=== PATIENT | male | born 1985 | race Caucasian/White ===

== ENCOUNTER 2016-04-19 12:08 | Emergency (ER) | payer MEDICARE ==
[2016-04-19 13:13] LABS: BASOPHILS 0.1 % (0.0-2.0); EOSINOPHILS 0 % (0-7); HEMATOCRIT 43.7 % (42.0-54.0); HEMOGLOBIN 15.6 g/dL (13.5-17.5); IMMATURE GRANULOCYTES 0.2 % (0-5); LYMPHOCYTES 11.3 % (15-50); MCH 30.5 pg (26.0-34.0); MCHC 35.7 g/dL (31.0-37.0); MCV 85.5 fL (80.0-100.0); MEAN PLATELET VOLUME 9.1 fL (7.4-10.4); MONOCYTES 10.3 % (2-11); NEUTROPHILS 78.1 % (40-80); RBC 5.11 10x6/uL (4.20-6.10); RDW 13.6 % (11.5-14.5); WBC 18.4 10x3/uL (4.8-10.8)
[2016-04-19 13:18] LABS: PLATELET COUNT 311 10x3/uL (130-400)
[2016-04-19 13:28] LABS: ALBUMIN 4.6 g/dL (3.4-5.0); ALKALINE PHOSPHATASE 71 U/L (46-116); ALT (SGPT) 69 U/L (10-68); CALC OSMOLALITY 267 mosm/kg (275-300); CALCIUM 9.4 mg/dL (8.5-10.1); CARBON DIOXIDE 26.5 mmol/L (21.0-32.0); CHLORIDE - SERUM 90 mmol/L (98-107); CREATININE - SERUM 1.2 mg/dL (0.6-1.3); GLUCOSE 123 mg/dL (74-106); POTASSIUM - SERUM 4.5 mmol/L (3.5-5.1); PROTEIN - SERUM 9.6 g/dL (6.4-8.2); SODIUM 127 mmol/L (136-145); UREA NITROGEN 45 mg/dL (7-18); eGFR NON AFRICAN AMERICAN 75 mL/min (90-120)
[2016-04-19 15:49] LABS: UDS - AMPHET POSITIVE QUAL (NEGATIVE); UDS - BARB NEGATIVE QUAL (NEGATIVE); UDS - BENZO NEGATIVE QUAL (NEGATIVE); UDS - COCAINE NEGATIVE QUAL (NEGATIVE); UDS - METH NEGATIVE QUAL (NEGATIVE); UDS - OPIATE POSITIVE QUAL (NEGATIVE); UDS - PCP NEGATIVE QUAL (NEGATIVE); UDS - THC POSITIVE QUAL (NEGATIVE)
[2016-04-19 16:04] LABS: APPEARANCE CLEAR (CLEAR); BILIRUBIN NEGATIVE (NEGATIVE); COLOR YELLOW (YELLOW); GLUCOSE NEGATIVE (NEGATIVE); KETONE SMALL mg/dL (NEGATIVE); LEUKOCYTE ESTERASE NEGATIVE (NEGATIVE); NITRITE NEGATIVE (NEGATIVE); PROTEIN TRACE mg/dL (NEGATIVE); SPECIFIC GRAVITY 1.015 (1.005-1.020); UROBILINOGEN NORMAL (NORMAL)
[2016-04-19 16:05] LABS: BACTERIA FEW /hpf (NONE SEEN); RED CELLS - URINE OCC /hpf (0-5); WHITE CELLS - URINE OCC /hpf (0-5)
== END 2016-04-19 16:03 | disposition home or self-care (01) ==
LOC: D.ER 12:08
PROVIDERS: Emergency Medicine Emergency Medical Services
DX: F41.9 Anxiety disorder, unspecified (principal); E86.0 Dehydration

== ENCOUNTER 2019-01-02 11:17 | Emergency (ER) | payer MEDICARE ==
[~2019-01-02] VITALS: Ht 182.9 cm; Wt 79.5 kg
[2019-01-02 11:20] VITALS: Ht 182.9 cm; Wt 79.5 kg
[2019-01-02] MEDS ORDERED: [UNRECOGNIZED DRUG - REMARK] (11:22)
[2019-01-02 11:35] VITALS: BP 122/87
[2019-01-02] MEDS ORDERED: HYDROCORTISONE30 G9 TOPICAL (12:43)
== END 2019-01-02 12:48 | disposition home or self-care (01) ==
LOC: D.ER 11:17
DX: R21 Rash and other nonspecific skin eruption (principal); F17.200 Nicotine dependence, unspecified, uncomplicated